=== PATIENT | female | born 1990 | race Caucasian/White ===

== ENCOUNTER 2021-09-09 16:08 | Emergency (ER) | payer MEDICAID ==
[~2021-09-09] VITALS: Ht 152.4 cm; Wt 77.0 kg
[2021-09-09 16:22] VITALS: BP 107/61
[2021-09-09] MEDS ORDERED: ACETAMINOPHEN 325MG TABLET PO STA (16:29)
== END 2021-09-09 20:37 | disposition left against medical advice (07) ==
LOC: ER 16:08
DX: M54.2 Cervicalgia (principal); Z53.21 Procedure and treatment not carried out due to patient leaving prior to being seen by health care provider
CPT/HCPCS: 76805